=== PATIENT | male | born 1940 | race Caucasian/White ===

== ENCOUNTER 2017-03-27 14:34 | Observation (INO) | payer MEDICARE, OTHER ==
[2017-03-27] MEDS ORDERED: Sodium Chloride 0.9% 2.5 ML Syringe FLUSH PRN (14:40)
[2017-03-27] MEDS ORDERED: Sodium Chloride 0.9% 10 ML Syringe FLUSH PRN (14:40)
--- NOTE | 2017-03-27 15:07 | EDM.PDOC ---
ED HPI GENERAL MEDICAL PROBLEM - General Chief Complaint: Respiratory Problem Stated Complaint: SICK Time Seen by Provider: 03/27/17 14:36 Source of Information: Reports: Patient History Limitations: Reports: No Limitations - History of Present Illness INITIAL COMMENTS - FREE TEXT/NARRATIVE: History of present illness: []Patient has been "sick" for 32 hours with cough and is so weak he cannot walk. At 2:30 today he fell in his bedroom behind his door was barricaded inside his room. His son-in-law was unable to open the door and had to call ambulance to help move him out of the way. Patient denies headache any pain, vomiting, diarrhea or fevers. He has had increasing memory loss and shuffling gait for the past 6 months and currently lives with his daughter and son-in-law. Review of systems: As per history of present illness and below otherwise all systems reviewed and negative. Past medical history: As per history of present illness and as reviewed below otherwise noncontributory. Surgical history: As per history of present illness and as reviewed below otherwise noncontributory. Social history: No reported history of drug or alcohol abuse. Family history: As per history of present illness and as reviewed below otherwise noncontributory. Physical exam: General: Well developed, well nourished in NAD HEENT: Atraumatic, normocephalic, pupils reactive, negative for conjunctival pallor or scleral icterus, mucous membranes moist, throat clear, neck supple, nontender, trachea midline. Lungs: Clear to auscultation, breath sounds equal bilaterally, chest nontender. Heart: S1S2, regular, negative for clicks, rubs, or JVD. Abdomen: Soft, nondistended, nontender. Negative for masses or hepatosplenomegaly. Negative for costovertebral tenderness. Pelvis: Stable nontender. Genitourinary: Deferred. Rectal: Deferred. Extremities: Atraumatic, negative for cords or calf pain. Neurovascular unremarkable. Neuro: Awake, alert, oriented. Cranial nerves II through XII unremarkable. Cerebellum unremarkable. Motor and sensory unremarkable throughout. Exam nonfocal. Diagnostics: []Labs are normal influenza positive for influenza B, CT scan of the head ordered secondary to a fall is negative for fracture or bleed Therapeutics: [] Impression: []Influenza B, progressive memory loss, fall Plan: []Admit for observation Definitive disposition and diagnosis as appropriate pending reevaluation and review of above. - Related Data Allergies Allergy/AdvReac Type Severity Reaction Status Date / Time No Known Allergies Allergy Verified 03/27/17 14:40 Home Meds: Home Meds Bisoprolol/Hydrochlorothiazide [Bisoprolol/HCTZ 10-6.25 MG] 1 tab DAILY [History] Lisinopril [Prinivil] 20 mg DAILY 03/27/17 [History] Pravastatin Sodium 20 mg DAILY 03/27/17 [History] Prednisone [IJD: Prednisone] 7.5 mg DAILY 03/27/17 [History] Past Medical History Cardiovascular History: Reports: High Cholesterol, Hypertension - Infectious Disease History Infectious Disease History: Reports: Chicken Pox, Measles - Past Surgical History Male Surgical History: Reports: Circumcision Social & Family History - Family History Family Medical History: Noncontributory - Tobacco Use Smoking Status *Q: Former Smoker Used Tobacco, but Quit: Yes Month Tobacco Last Used: unknown - Caffeine Use Caffeine Use: Reports: Coffee - Recreational Drug Use Recreational Drug Use: No ED ROS GENERAL - Review of Systems Review Of Systems: See Below (See history of present illness) ED EXAM, GENERAL - Physical Exam Exam: See Below (See history of present illness) Course - Vital Signs Last Recorded V/S: Last Vital Signs Temp 98.2 F 03/27/17 18:00 Pulse 58 L 03/27/17 18:00 Resp 19 03/27/17 18:00 BP 141/68 H 03/27/17 18:00 Pulse Ox 97 03/27/17 18:00 - Orders/Labs/Meds Orders: Active Orders 24 hr Category Date Time Status Sodium Chloride 0.9% [Saline Flush] Med 03/27/17 14:40 Active 10 ml FLUSH ASDIRECTED PRN Sodium Chloride 0.9% [Saline Flush] Med 03/27/17 14:40 Active 2.5 ml FLUSH ASDIRECTED PRN Saline Lock Insert [OM.PC] Stat Oth 03/27/17 14:40 Ordered Medication Orders Albuterol/Ipratropium (Duoneb 3.0-0.5 Mg/3 Ml) 3 ml NEB Q4HRRT PRN PRN Reason: Shortness Of Breath/wheezing Enoxaparin Sodium (Lovenox) 40 mg SUBCUT DAILY [facility] Sodium Chloride (Normal Saline) 1,000 mls @ 75 mls/hr IV ASDIRECTED [facility] Non-Formulary Medication (Lisinopril) 20 mg PO DAILY [facility] Non-Formulary Medication (Pravastatin Sodium) 20 mg PO DAILY [facility] Oseltamivir Phosphate (Tamiflu) 75 mg PO DAILY [facility] Pantoprazole Sodium (Protonix) 40 mg PO BEDTIME [facility] Polyethylene Glycol (Miralax) 17 gm PO DAILY PRN PRN Reason: Constipation Prednisone (Prednisone) 7.5 mg PO DAILY [facility] Senna/Docusate Sodium (Senna Plus) 1 tab PO BID PRN PRN Reason: Constipation Sodium Chloride (Saline Flush) 10 ml FLUSH ASDIRECTED PRN PRN Reason: Keep Vein Open Sodium Chloride (Saline Flush) 2.5 ml FLUSH ASDIRECTED PRN PRN Reason: Keep Vein Open Labs: Laboratory Tests 03/27/17 03/27/17 03/27/17 Range/Units 14:52 14:52 14:52 WBC 6.38 (4.0-11.0) K/uL RBC 4.84 (4.50-5.90) M/uL Hgb 14.2 (13.0-17.0) g/dL Hct 42.5 (38.0-50.0) % MCV 87.8 (80.0-98.0) fL MCH 29.3 (27.0-32.0) pg MCHC 33.4 (31.0-37.0) g/dL RDW Std Deviation 44.4 (28.0-62.0) fl RDW Coeff of Kisha 14 (11.0-15.0) % Plt Count 188 (150-400) K/uL MPV 9.50 (7.40-12.00) fL Add Manual Diff YES Neutrophils % (Manual) 62 (48.0-80.0) % Band Neutrophils % 10 % Lymphocytes % (Manual) 9 L (16.0-40.0) % Monocytes % (Manual) 17 H (0.0-15.0) % Eosinophils % (Manual) 1 (0.0-7.0) % Basophils % (Manual) 1 (0.0-1.5) % Nucleated RBC % 0.0 /100WBC Absolute Seg Neuts 4.0 (1.4-5.7) Band Neutrophils # 0.6 Lymphocytes # (Manual) 0.6 (0.6-2.4) Monocytes # (Manual) 1.1 H (0.0-0.8) Eosinophils # (Manual) 0.1 (0.0-0.7) Basophils # (Manual) 0.1 (0.0-0.1) Nucleated RBCs # 0 K/uL Sodium 135 L (136-146) mmol/L Potassium 4.2 (3.5-5.1) mmol/L Chloride 101 (98-110) mmol/L Carbon Dioxide 27 (21-31) mmol/L BUN 20 (6.0-23.0) mg/dL Creatinine 1.2 (0.6-1.5) mg/dL Est Cr Clr Drug Dosing 55.69 mL/min Estimated GFR (MDRD) 58.6 ml/min Glucose 111 H (60-110) mg/dL Hemoglobin A1c (4.5-6.2) % Calcium 9.7 (8.8-10.8) mg/dL Total Bilirubin 0.7 (0.1-1.5) mg/dL AST 21 (5-40) IU/L ALT 25 (8-54) IU/L Alkaline Phosphatase 51 (40-150) Troponin I < 0.10 (0.0-0.29) NG/ML B-Natriuretic Peptide 99 (<100) PG/ML Total Protein 7.2 (6.0-8.0) g/dL Albumin 3.9 (3.4-4.8) g/dL Globulin 3.3 (2.0-3.5) g/dL Albumin/Globulin Ratio 1.2 L (1.3-2.8) Urine Color Urine Appearance Urine pH (5.0-8.0) Ur Specific Jameson (1.001-1.035) Urine Protein (NEGATIVE) mg/dL Urine Glucose (UA) (NEGATIVE) mg/dL Urine Ketones (NEGATIVE) mg/dL Urine Occult Blood (NEGATIVE) Urine Nitrite (NEGATIVE) Urine Bilirubin (NEGATIVE) Urine Urobilinogen (<2.0) EU/dL Ur Leukocyte Esterase (NEGATIVE) Urine RBC (0-2/HPF) Urine WBC (0-5/HPF) Ur Epithelial Cells (NONE-FEW) Urine Bacteria (NEGATIVE) 02/07/18 02/07/18 Range/Units 14:52 16:03 WBC (4.0-11.0) K/uL RBC (4.50-5.90) M/uL Hgb (13.0-17.0) g/dL Hct (38.0-50.0) % MCV (80.0-98.0) fL MCH (27.0-32.0) pg MCHC (31.0-37.0) g/dL RDW Std Deviation (28.0-62.0) fl RDW Coeff of Kisha (11.0-15.0) % Plt Count (150-400) K/uL MPV (7.40-12.00) fL Add Manual Diff Neutrophils % (Manual) (48.0-80.0) % Band Neutrophils % % Lymphocytes % (Manual) (16.0-40.0) % Monocytes % (Manual) (0.0-15.0) % Eosinophils % (Manual) (0.0-7.0) % Basophils % (Manual) (0.0-1.5) % Nucleated RBC % /100WBC Absolute Seg Neuts (1.4-5.7) Band Neutrophils # Lymphocytes # (Manual) (0.6-2.4) Monocytes # (Manual) (0.0-0.8) Eosinophils # (Manual) (0.0-0.7) Basophils # (Manual) (0.0-0.1) Nucleated RBCs # K/uL Sodium (136-146) mmol/L Potassium (3.5-5.1) mmol/L Chloride (98-110) mmol/L Carbon Dioxide (21-31) mmol/L BUN (6.0-23.0) mg/dL Creatinine (0.6-1.5) mg/dL Est Cr Clr Drug Dosing mL/min Estimated GFR (MDRD) ml/min Glucose (60-110) mg/dL Hemoglobin A1c 5.7 (4.5-6.2) % Calcium (8.8-10.8) mg/dL Total Bilirubin (0.1-1.5) mg/dL AST (5-40) IU/L ALT (8-54) IU/L Alkaline Phosphatase (40-150) Troponin I (0.0-0.29) NG/ML B-Natriuretic Peptide (<100) PG/ML Total Protein (6.0-8.0) g/dL Albumin (3.4-4.8) g/dL Globulin (2.0-3.5) g/dL Albumin/Globulin Ratio (1.3-2.8) Urine Color YELLOW Urine Appearance CLEAR Urine pH 6.0 (5.0-8.0) Ur Specific Jameson 1.015 (1.001-1.035) Urine Protein NEGATIVE (NEGATIVE) mg/dL Urine Glucose (UA) NEGATIVE (NEGATIVE) mg/dL Urine Ketones NEGATIVE (NEGATIVE) mg/dL Urine Occult Blood TRACE-INTACT (NEGATIVE) Urine Nitrite NEGATIVE (NEGATIVE) Urine Bilirubin NEGATIVE (NEGATIVE) Urine Urobilinogen 0.2 (<2.0) EU/dL Ur Leukocyte Esterase NEGATIVE (NEGATIVE) Urine RBC 0-1 (0-2/HPF) Urine WBC 0-1 (0-5/HPF) Ur Epithelial Cells RARE (NONE-FEW) Urine Bacteria RARE (NEGATIVE) Meds: Medications Generic Name Dose Route Start Last Admin Trade Name Freq PRN Reason Stop Dose Admin Albuterol/Ipratropium 3 ml 03/27/17 18:01 Duoneb 3.0-0.5 Mg/3 Ml NEB Q4HRRT PRN Shortness Of Breath/wheezing Enoxaparin Sodium 40 mg 03/27/17 18:15 Lovenox SUBCUT DAILY [facility] Sodium Chloride 1,000 mls @ 75 mls/hr 03/27/17 18:15 Normal Saline IV ASDIRECTED [facility] Non-Formulary Medication 20 mg 03/28/17 09:00 Lisinopril PO DAILY [facility] Non-Formulary Medication 20 mg 03/28/17 09:00 Pravastatin Sodium PO DAILY [facility] Oseltamivir Phosphate 75 mg 03/27/17 18:15 Tamiflu PO DAILY [facility] Pantoprazole Sodium 40 mg 03/27/17 21:00 Protonix PO BEDTIME [facility] Polyethylene Glycol 17 gm 03/27/17 18:01 Miralax PO DAILY PRN Constipation Prednisone 7.5 mg 03/28/17 09:00 Prednisone PO DAILY [facility] Senna/Docusate Sodium 1 tab 03/27/17 18:01 Senna Plus PO BID PRN Constipation Sodium Chloride 10 ml 03/27/17 14:40 Saline Flush FLUSH ASDIRECTED PRN Keep Vein Open Sodium Chloride 2.5 ml 03/27/17 14:40 Saline Flush FLUSH ASDIRECTED PRN Keep Vein Open Departure - Departure Time of Disposition: 17:35 Disposition: Refer to Observation Condition: Good Clinical Impression: Influenza B - Discharge Information - My Orders Last 24 Hours: My Active Orders 03/27/17 14:40 Sodium Chloride 0.9% [Saline Flush] 10 ml FLUSH ASDIRECTED PRN Sodium Chloride 0.9% [Saline Flush] 2.5 ml FLUSH ASDIRECTED PRN Saline Lock Insert [OM.PC] Stat - Assessment/Plan Last 24 Hours: My Active Orders 03/27/17 14:40 Sodium Chloride 0.9% [Saline Flush] 10 ml FLUSH ASDIRECTED PRN Sodium Chloride 0.9% [Saline Flush] 2.5 ml FLUSH ASDIRECTED PRN Saline Lock Insert [OM.PC] Stat
[2017-03-27 15:31] LABS: CHLORIDE,CL 101 mmol/L (98-110); SODIUM,NA 135 mmol/L (136-146)
--- NOTE | 2017-03-27 15:35 | CR ---
EXAMINATION: Portable chest radiograph. HISTORY: Shortness of breath. FINDINGS: The trachea is midline. The cardiomediastinal silhouette is within normal limits. No pulmonary infilt rates, effusions or pneumothorax. Osseous structures appear unremarkable. IMPRESSION: No acute cardiopulmonary process.
--- NOTE | 2017-03-27 17:48 | PCM.HP ---
H&P History of Present Illness - General Date of Service: 03/27/17 Admit Problem/Dx: Admission Diagnosis/Problem Admission Diagnosis/Problem Influenza Source of Information: Patient, Family - History of Present Illness Initial Comments - Free Text/Narative: 76-year-old male with a past history of hypertension, hyperlipidemia, polymyositis that presents today with his son and [id number] with a chief complaint of generalized weakness and altered mental status. As per the family, in the last 24 hours the patient has been exhibiting signs of confusion. The [id number] tells me that he has been showing signs of memory loss and confusion over the past couple of months that has acutely worsened over the past day. In particular, the [id number] tells me that he has been watching the same football game over and over. He also benefits on sports and then forgets which team he betted on. Prior to arrival, both daughter in law and son were out of the house and when they came back they found him on the ground after having a fall. This was unwitnessed. Unsure of how long he was down for and not sure of head trauma. Patient himself when asked states that hes having difficulty walking because he feels weak. He denies headache, pain anywhere, shortness of breath, palpitations, nausea, vomiting. No loss of bowel/bladder. ER Course: CBC unremarkable CMP/CXR/UA unremarkable aside from mild hyponatremia 135 Influenza + - Related Data Allergies/Adverse Reactions: Allergies Allergy/AdvReac Type Severity Reaction Status Date / Time No Known Allergies Allergy Verified 03/27/17 14:40 Home Medications: Home Meds Bisoprolol/Hydrochlorothiazide [Bisoprolol/HCTZ 10-6.25 MG] 1 tab DAILY [History] Lisinopril [Prinivil] 20 mg DAILY 03/27/17 [History] Pravastatin Sodium 20 mg DAILY 03/27/17 [History] Prednisone [IJD: Prednisone] 7.5 mg DAILY 03/27/17 [History] Past Medical History Cardiovascular History: Reports: High Cholesterol, Hypertension - Infectious Disease History Infectious Disease History: Reports: Chicken Pox, Measles - Past Surgical History Male Surgical History: Reports: Circumcision Social & Family History - Family History Family Medical History: Noncontributory - Tobacco Use Smoking Status *Q: Former Smoker Used Tobacco, but Quit: Yes Month Tobacco Last Used: unknown - Caffeine Use Caffeine Use: Reports: Coffee - Recreational Drug Use Recreational Drug Use: No H&P Review of Systems - Review of Systems: Review Of Systems: See Below General: Reports: Weakness HEENT: Denies: Sore Throat Pulmonary: Reports: Cough, Other (dry persistent cough). Denies: Shortness of Breath, Wheezing, Pleuritic Chest Pain, Hemoptysis Cardiovascular: Reports: Lightheadedness Gastrointestinal: Reports: No Symptoms Genitourinary: Reports: No Symptoms Musculoskeletal: Reports: Other (hx of polymyositis. hit his right elbow during the fall today) Skin: Reports: No Symptoms Psychiatric: Reports: Other (see HPI.). Denies: Suicidal Ideation, Homicidal Ideation, Hallucinations (Auditory), Hallucinations (Visual) Neurological: Reports: No Symptoms Hematologic/Lymphatic: Reports: No Symptoms Immunologic: Reports: No Symptoms Exam - Exam Exam: See Below - Vital Signs Vital Signs: Last Vital Signs Temp 36.8 C 03/27/17 14:38 Pulse 57 L 03/27/17 16:04 Resp 18 03/27/17 16:04 BP 132/56 L 03/27/17 16:04 Pulse Ox 96 03/27/17 16:04 Weight: 99.79 kg - Exam General: Alert, Oriented, Cooperative HEENT: Conjunctiva Clear, EACs Clear, EOMI, Mucosa Moist & [place], Nares Patent, Normal Nasal Septum, Other (hard of hearing) Neck: Supple, Trachea Midline, +2 Carotid Pulse wo Bruit Lungs: Other (expiratory wheezing) Cardiovascular: Regular Rate, Regular Rhythm GI/Abdominal Exam: Normal Bowel Sounds, Soft, Non-Tender, No Organomegaly Back Exam: Normal Inspection, Full Range of Motion. No: CVA Tenderness (L), CVA Tenderness (R) Extremities: Normal Inspection, Normal Range of Motion, Non-Tender, No Pedal Edema, Normal Capillary Refill Skin: Warm, Dry Neurological: Cranial Nerves Intact Neuro Extensive - Mental Status: Alert, Oriented x3, Normal Mood/Affect, Other ( took a long time to remember the name of the city. he knows that he originally from [place]. ) Neuro Extensive - Motor, Sensory, Reflexes: CN II-XII Intact Psychiatric: Alert, Normal Affect, Normal Mood - Patient Data Result Diagrams: 03/27/17 14:52 03/27/17 14:52 *Q Meaningful Use (ADM) - VTE *Q VTE Criteria *Q: - Stroke *Q Stroke Criteria *Q: - AMI *Q AMI Criteria *Q: Problem List Initiated/Reviewed/Updated: Yes Orders Last 24hrs: Active Orders 24 hr Category Date Time Status Head wo Cont [CT] Stat Exams 03/27/17 17:02 Taken Medication Orders Sodium Chloride (Saline Flush) 10 ml FLUSH ASDIRECTED PRN PRN Reason: Keep Vein Open Sodium Chloride (Saline Flush) 2.5 ml FLUSH ASDIRECTED PRN PRN Reason: Keep Vein Open Assessment/Plan Comment:: A: #1. Altered mental status #2. Influenza + #3. Fall #4. mild hyponatremia #5. History of HTN, HLD, Polymyositis #6. Mild dehydration P: #1. Admit to floor for observation. Full code. Vital signs per floor. I's and O' s per floor. Regular diet. Up with assistance. Flu precautions.Telemetry. #2. IVNS 75mL/h #3. CBC, CMP, B12, TSH, Folate, Thiamine level, HgbA1c for tomorrow AM. I think this patient has underlying early signs of dementia that may have been exacerbated by the flu. We'll see how he responds to tamiflu + rehydration. Will rule out signs of dementia secondary to those labs ordered. #4. Tamiflu 75mg PO daily #5. F/u on Head CT that was done in ER #6. Lovenox for DVT Prophylaxis #7. Restart home meds
[2017-03-27] MEDS ORDERED: Albuterol/Ipratropium 3.0-0.5 MG/3 ML Neb Soln NEB PRN (18:01)
[2017-03-27] MEDS ORDERED: Polyethylene Glycol 3350 Powder 17 GM Packet PO PRN (18:01)
[2017-03-27] MEDS ORDERED: Sodium Chloride 0.9% 1,000 ML IV SCH (18:15)
[2017-03-27] MEDS: Oseltamivir 75 MG Cap PO SCH (19:27)
[2017-03-27] MEDS: Enoxaparin 40 MG/0.4 ML Syringe SUBCUT SCH (19:27)
[2017-03-27] MEDS ORDERED: Pantoprazole 40 MG Tab.CR PO SCH (21:00)
[2017-03-28] MEDS ORDERED: Pravastatin 40 MG Tab PO SCH (09:00)
[2017-03-28] MEDS ORDERED: predniSONE 5 MG Tab PO SCH (09:00)
[2017-03-28] MEDS ORDERED: Lisinopril 10 MG Tab PO SCH (09:00)
[2017-03-28] MEDS: Enoxaparin 40 MG/0.4 ML Syringe SUBCUT SCH (09:06)
[2017-03-28] MEDS: Oseltamivir 75 MG Cap PO SCH (09:07)
--- NOTE | 2017-03-28 09:57 | CT ---
EXAM DATE: 03/27/17 PATIENT'S AGE: 76 Patient: JESS PEDROZA Facility: [place], [place] Site . Site : [id number] Study: CT Head [id number]/[id number] 5:29:57 PM Ordering Physician: Raymond Coyle Final Report: INDICATIONS: Pain. TECHNIQUE: CT head without contrast. COMPARISON: None FINDINGS: Mild atrophy and changes of chronic small vessel ischemic disease. No mass effect, midline shift or hydrocephalus. No CT evidence of acute hemorrhage or infarction. No abnormal extra-axial fluid collection. Intracranial atherosclerosis. Bone windows show no acute abnormality. Visualized paranasal sinuses and orbits are unremarkable. IMPRESSION: No acute intracranial abnormality. Dictated by Keaton Borjas MD @ 03/27/2017 5:40:59 PM Dictated by: Keaton Borjas MD @ 03/27/2017 17:41:07 (Electronic Signature) Report Signed by Proxy. [facility] MEDICAL CENTERAngel
--- NOTE | 2017-03-28 11:20 | PCM.DCSUM1 ---
Discharge Summary - Hospital Course Free Text/Narrative:: Admission date: March 27, 2017 Discharge date: March 28, 2017 Admission diagnosis: #1. Influenza #2. Altered mental status with questionable undiagnosed dementia #3. Unwitnessed fall Discharge diagnosis: 1. Influenza 2. Altered mental status improved 3. History of hypertension, hyperlipidemia, polymyositis Hospital course: 76-year-old male with a past history of above-mentioned history that presented with his son and [id number] after having a fall at home and complaints of generalized weakness. Patient was influenza B positive. He is admitted for observation and treatment with Tamiflu. Patient did well overnight, and it appears that his mental status also improved. He is able to answer questions much better than the following morning. He was discharged home on Tamiflu. Advised to follow-up with PCP, neurology. I did test for B12, folate , TSH all of which were unremarkable. CT head obtained after the fall in the emergency department was also unremarkable aside from chronic atrophy findings that are expected at his age. - Discharge Data Discharge Date: 03/28/17 Discharge Disposition: Home, Self-Care 01 Condition: Good - Patient Summary/Data Consults: Consultations 03/27/17 18:01 PT Evaluation and Treatment [CONS] Routine - Patient Instructions Diet: Usual Diet as Tolerated Activity: As Tolerated Showering/Bathing: June Shower Notify Provider of: Fever, Increased Pain, Swelling and Redness, Drainage, Nausea and/or Vomiting - Discharge Plan Prescriptions/Med Rec: Oseltamivir [Tamiflu] 75 mg PO DAILY 4 Days #4 cap Home Medications: Home Meds Bisoprolol/Hydrochlorothiazide [Bisoprolol/HCTZ 10-6.25 MG] 1 tab DAILY [History] Lisinopril [Prinivil] 20 mg DAILY 03/27/17 [History] Pravastatin Sodium 20 mg DAILY 03/27/17 [History] Prednisone [IJD: Prednisone] 7.5 mg DAILY 03/27/17 [History] Oseltamivir [Tamiflu] 75 mg PO DAILY 4 Days #4 cap 03/28/17 [Rx] Patient Handouts: Influenza, Adult, [id number]-[id number], Oseltamivir capsules Referrals: [facility] [Outside] Maribel Pavon NP [Ordering Only Provider] - 04/04/17 1:15 pm Kelsey Maloney MD [Physician] - 05/29/17 8:00 am - Discharge Summary/Plan Comment Discharge Summary/Plan Comment: Admission date: March 27, 2017 Discharge date: March 28, 2017 Admission diagnosis: #1. Influenza #2. Altered mental status with questionable undiagnosed dementia #3. Unwitnessed fall Discharge diagnosis: 1. Influenza 2. Altered mental status improved 3. History of hypertension, hyperlipidemia, polymyositis Hospital course: 76-year-old male with a past history of above-mentioned history that presented with his son and [id number] after having a fall at home and complaints of generalized weakness. Patient was influenza B positive. He is admitted for observation and treatment with Tamiflu. Patient did well overnight, and it appears that his mental status also improved. He is able to answer questions much better than the following morning. He was discharged home on Tamiflu. Advised to follow-up with PCP, neurology. I did test for B12, folate , TSH all of which were unremarkable. CT head obtained after the fall in the emergency department was also unremarkable aside from chronic atrophy findings that are expected at his age. - Patient Data Vitals - Most Recent: Last Vital Signs Temp 36.7 C 03/28/17 08:00 Pulse 61 03/28/17 08:00 Resp 18 03/28/17 08:00 BP 117/66 03/28/17 09:07 Pulse Ox 94 L 03/28/17 08:00 Weight - Most Recent: 99.79 kg I&O - Last 24 hours: Intake & Output 03/27/17 03/28/17 03/28/17 22:59 06:59 14:59 Intake Total 1473 Output Total 225 Balance 1248 Lab Results - Last 24 hrs: Laboratory Results - last 24 hr 03/28/17 03/28/17 Range/Units 05:36 05:36 WBC 6.46 (4.0-11.0) K/uL RBC 4.73 (4.50-5.90) M/uL Hgb 13.9 (13.0-17.0) g/dL Hct 42.0 (38.0-50.0) % MCV 88.8 (80.0-98.0) fL MCH 29.4 (27.0-32.0) pg MCHC 33.1 (31.0-37.0) g/dL RDW Std Deviation 45.9 (28.0-62.0) fl RDW Coeff of Kisha 14 (11.0-15.0) % Plt Count 170 (150-400) K/uL MPV 10.00 (7.40-12.00) fL Add Manual Diff YES Neutrophils % (Manual) 57 (48.0-80.0) % Band Neutrophils % 2 % Lymphocytes % (Manual) 32 (16.0-40.0) % Monocytes % (Manual) 7 (0.0-15.0) % Eosinophils % (Manual) 2 (0.0-7.0) % Nucleated RBC % 0.0 /100WBC Absolute Seg Neuts 3.7 (1.4-5.7) Band Neutrophils # 0.1 Lymphocytes # (Manual) 2.1 (0.6-2.4) Monocytes # (Manual) 0.5 (0.0-0.8) Eosinophils # (Manual) 0.1 (0.0-0.7) Nucleated RBCs # 0 K/uL Sodium 137 (136-146) mmol/L Potassium 4.3 (3.5-5.1) mmol/L Chloride 101 (98-110) mmol/L Carbon Dioxide 29 (21-31) mmol/L BUN 19 (6.0-23.0) mg/dL Creatinine 1.3 (0.6-1.5) mg/dL Est Cr Clr Drug Dosing 51.40 mL/min Estimated GFR (MDRD) 53.4 ml/min Glucose 98 (60-110) mg/dL Calcium 8.9 (8.8-10.8) mg/dL Med Orders - Current: Current Medications Albuterol/Ipratropium (Duoneb 3.0-0.5 Mg/3 Ml) 3 ml NEB Q4HRRT PRN PRN Reason: Shortness Of Breath/wheezing Last Admin: 03/27/17 18:51 Dose: 3 ml Enoxaparin Sodium (Lovenox) 40 mg SUBCUT DAILY [facility] Last Admin: 03/28/17 09:06 Dose: 40 mg Sodium Chloride (Normal Saline) 1,000 mls @ 75 mls/hr IV ASDIRECTED [facility] Last Admin: 03/27/17 19:27 Dose: 75 mls/hr Lisinopril (Prinivil) 20 mg PO DAILY [facility] Last Admin: 03/28/17 09:07 Dose: 20 mg Oseltamivir Phosphate (Tamiflu) 75 mg PO DAILY [facility] Last Admin: 03/28/17 09:07 Dose: 75 mg Pantoprazole Sodium (Protonix) 40 mg PO BEDTIME [facility] Last Admin: 03/27/17 20:21 Dose: 40 mg Polyethylene Glycol (Miralax) 17 gm PO DAILY PRN PRN Reason: Constipation Pravastatin Sodium (Pravachol) 20 mg PO BEDTIME [facility] Last Admin: 03/28/17 09:07 Dose: 20 mg Prednisone (Prednisone) 7.5 mg PO DAILY [facility] Last Admin: 03/28/17 09:07 Dose: 7.5 mg Senna/Docusate Sodium (Senna Plus) 1 tab PO BID PRN PRN Reason: Constipation Sodium Chloride (Saline Flush) 10 ml FLUSH ASDIRECTED PRN PRN Reason: Keep Vein Open Sodium Chloride (Saline Flush) 2.5 ml FLUSH ASDIRECTED PRN PRN Reason: Keep Vein Open *Q Meaningful Use (DIS) - VTE *Q VTE Criteria *Q: - Stroke *Q Stroke Criteria *Q: - AMI *Q AMI Criteria *Q:
== END 2017-03-28 11:50 | disposition home or self-care (01) ==
LOC: MW.ED 14:34 → MW.MS 16:27
PROVIDERS: ADMIT Family Medicine; ATTEND Family Medicine
DX: J10.1 Influenza due to other identified influenza virus with other respiratory manifestations (principal); R41.82 Altered mental status, unspecified; I10 Essential (primary) hypertension; E78.5 Hyperlipidemia, unspecified; M33.20 Polymyositis, organ involvement unspecified; E87.1 Hypo-osmolality and hyponatremia; E86.0 Dehydration; W19.XXXA Unspecified fall, initial encounter; Z79.899 Other long term (current) drug therapy; Z87.891 Personal history of nicotine dependence
CPT/HCPCS: 36415; 70450; 71045; 80048; 80053; 81001; 82607; 82746; 83036; 83880; 84443; 84484; 85025; 87804; 94640; 96372; 97161; 99285; A9270; G0378; J1650; J7040; 99284